=== PATIENT | male | born 1940 | race Caucasian/White ===

== ENCOUNTER → 2017-05-22 | Outpatient (CLI) | payer OTHER ==
[~2017-05-22] VITALS: Ht 182.9 cm; Wt 86.2 kg
[~2017-05-22] MED LIST: ASPIR 8181 MG PO; ASPIRIN EC81 M1; COLCHICINE0.6 M1 PO; CRESTOR5 MG PO; DIOVAN40 MG PO; FLOMAX0.4 MG PO; GLUCOPHAGE XR750 MG PO; PROSCAR 5MG TABL5 MG PO; VALSARTAN-HCTZ1 EAC1 PO; VITAMIN D32000 UNI1 PO
--- NOTE | ~2017-05-22 | S ---
[facility] [address] [place] [address] SURGICAL PATH RPT PROCEDURE Name: AMANDA ROBERTS Room #: REG [facility]ON[facility] M.R.#: [id number] Admission: 05/22/17 Date of : 40 Discharge: Report #: [id number] Path Case #: [id number] PATHOLOGY REPORT DRAFT COLLECTION DATE: 05/22/2017 RECEIVED DATE: 05/23/2017 SPECIMEN(S) RECEIVED: A.Michael 70 cm
--- NOTE | ~2017-05-22 | P ---
[facility] [place] [address] PROCEDURE REPORT Name: AMANDA ROBERTS Room #: REG [facility]#: [id number] Admission: 05/22/17 Attend Phys: Robby Moon MD Discharge: Date of : 40 Report #: [id number] THIS REPORT FOR: //name// CC: Robby Moon BRIEF HISTORY: The patient is a 76-year-old male with a history of colon adenomas. He presents today for high risk screening colonoscopy due to his history of colon adenomas. PREOPERATIVE DIAGNOSIS: High risk screening colonoscopy. POSTOPERATIVE DIAGNOSIS: Diminutive polyp at 70 cm. MEDICATIONS: Deep sedation with propofol per anesthesia. SPECIMEN: Polyp from 70 cm. ESTIMATED BLOOD LOSS: 3 mL. PROCEDURE: Colonoscopy to cecum and terminal ileum with biopsy. FINDINGS: Prior to propofol sedation, procedure of colonoscopy discussed with the patient as well as potential risks, benefits, and complications. He indicates he understands and desires to proceed. With the patient in left lateral decubitus position, digital examination was completed, which revealed no abnormalities. Subsequently, the [employer] video colonoscope was introduced into the rectum, advanced under direct vision to the cecum. Done with minimal difficulty. The cecum was identified by the ileocecal valve and the appendiceal orifice. I was able to visualize the distal segment of terminal ileum, which was inspected and noted to be unremarkable. At that point, the scope was slowly withdrawn and careful circumferential views obtained including retroflexing the scope in the ascending colon. Upon slow withdrawal of the scope, the prep was noted to be excellent. The mucosa was within normal limits, normal vascular pattern, and normal light reflex. As we withdrew the scope, no abnormalities were noted until about 70 cm, at which point a flat 3-mm polyp was seen and removed by biopsy forceps. Scope was further withdrawn and no additional polyps were seen. The mucosa throughout the remainder of the colon was normal. Scope was withdrawn in the rectum and no abnormalities were seen. Upon retroflexion, no abnormalities were seen. Scope was withdrawn. The patient tolerated the procedure well. CONDITION OF THE PATIENT UPON DISCHARGE: Following procedure, the patient drowsy, aroused, conversant and will be discharged home when fully ambulatory. [facility] [address] [place] [address] PROCEDURE REPORT Name: AMANDA ROBERTS Room #: REG [facility]#: [id number] Admission: 05/22/17 Attend Phys: Robby Moon MD Discharge: Date of : 40 Report #: [id number] INSTRUCTIONS TO THE PATIENT AND FAMILY AT THE TIME OF DISCHARGE: One diminutive polyp identified and removed as described above. If this is an adenoma, suggest followup colon exam in 5 years as long as health is satisfactory. Otherwise, there may be a limited role for continued high risk screening colonoscopy. However, if his health is excellent in 10 years, he may consider a high risk screening colonoscopy. He will return to care of Dr. Robby Vargas, return to see me as needed. Last colonoscopy was about 5 years ago. Withdrawal time from the cecum was 16 minutes. By: [id number] Robby Moon MD /nt
== END | disposition home or self-care (01) ==
LOC: GI 06:37
DX: Z09 Encounter for follow-up examination after completed treatment for conditions other than malignant neoplasm (principal); K63.5 Polyp of colon; I10 Essential (primary) hypertension; E78.00 Pure hypercholesterolemia, unspecified; M10.9 Gout, unspecified; Z87.891 Personal history of nicotine dependence; Z98.41 Cataract extraction status, right eye; Z98.42 Cataract extraction status, left eye; Z96.1 Presence of intraocular lens; Z98.890 Other specified postprocedural states; Z79.82 Long term (current) use of aspirin; Z79.899 Other long term (current) drug therapy
CPT/HCPCS: 62110; 62900